=== PATIENT | male | born 1975 | race Caucasian/White ===

== ENCOUNTER 2016-12-07 17:42 | Observation (INO) | payer OTHER ==
--- NOTE | ~2016-12-07 | HP ---
Unit #: [id number] #: [id number] Patient: JENAE VALERIO [id number] [address] [place], [place] [address] [id number] I MR#: [id number] NAME: JENAE VALERIO ROOM: [facility] Age: 41 Sex: M Admission Date: 12/07/2016 : 1975 Attending Physician: Emma Mike M.D. Primary Care Physician: No Primary Care Physician HISTORY AND PHYSICAL CHIEF COMPLAINT Nausea, vomiting, and hyperthyroidism. HISTORY This pleasant, 41-year-old male with hyperthyroidism diagnosed 3-4 months ago and hypertension was transferred from [facility] emergency department for complaints of nausea and vomiting. Patient was diagnosed with hyperthyroidism about 3-4 months ago and was placed on PTU 50 mg t.i.d. long with Lopressor 25 mg b.i.d. States that he notes intermittent nausea and vomiting, which he believes is related to his PTU and, therefore, decreased his PTU only to 50 mg once a day. He had stopped taking his medicine for about a month until a week ago. States that his symptoms of hyperthyroidism including palpitations and shakiness had increased and, therefore, resumed his PTU at 50 mg a week ago. He went to [facility] emergency department yesterday and was noted to have a blood pressure of 180/98 and heart rate about 120. He was bolused with a liter of saline, given Zofran, and 1 mg of IV propranolol. Was sent to this hospital as there were some concerns about possible thyroid storm. Currently, the patient is comfortable. He has an enlarged thyroid/goiter on exam, which is symmetric. He has a minor tremor. He is afebrile and his vital signs are improved. His heart rate now is 116 with a blood pressure of 168/99. PAST MEDICAL HISTORY 1. Hyperthyroidism diagnosed 3-4 months ago. 2. Hypertension. 3. Left wrist surgery. ALLERGIES None. HOME MEDICATIONS 1. PTU 50 mg, which is supposed to be 3 times a times a day, but patient is only taking it once a day. 2. Lopressor 25 mg b.i.d. 3. Zestoretic 20/12.5 mg daily. FAMILY HISTORY Hyperthyroidism. SOCIAL HISTORY The patient lives with his pets. He does smoke THC frequently. Does not drink alcohol and is a lifelong nonsmoker. Unit #: [id number] #: [id number] Patient: JENAE VALERIO REVIEW OF SYSTEMS Notable for tremulousness, palpitations, hyperthyroidism, hypertension, and left wrist surgery. All other systems were reviewed and otherwise negative. PHYSICAL EXAMINATION GENERAL APPEARANCE: Pleasant, 41-year-old male who currently is in no acute distress. VITAL SIGNS: Temperature 98.2, current heart rate is 116, respirations 20, current blood pressure is 168/99, and O2 saturation is 96% on room air. HEENT: Eyes: PERRLA. Extraocular muscles are intact. Pharynx is benign. Patient has an enlarged, mildly tender thyroid, which is symmetric. CHEST: Clear. CARDIAC: Slightly tachy S1 and S2 without definite murmur. ABDOMEN: Bowels sounds are present. No hepatosplenomegaly, tenderness, or masses. EXTREMITIES: Without C, C, or E. Pedal pulses are present. NEUROLOGIC: Patient is awake, alert, and oriented. His cranial nerves are intact. He has equal strength throughout and has a fine tremor on exam. DIAGNOSTIC STUDIES LABORATORY: Admission labs: Hematocrit is 41.3 and white blood count and platelet count are normal. SMA-12: Alk phos 139. Normal amylase and lipase. TSH 0.04. Free T4 5.3. Free T3 is 25. Urinalysis is negative. CARDIOVASCULAR: EKG: Sinus tachycardia, rate 118, otherwise normal appearing. ASSESSMENT 1. Nausea and vomiting, which may be related to PTU versus related to marijuana. 2. Hyperthyroidism diagnosed 3-4 months ago, likely Graves disease. Patient is only taking his PTU once a day. 3. Hypertension. PLANS 1. IV fluids, Zofran. 2. Patient to stop smoking marijuana. 3. Increase PTU back to t.i.d. and increase Lopressor to 50 mg b.i.d. 4. Consult endocrinology. Dictated by Faye Lopez M.D. EMPERATRIZ/arely TD: 12/08/2016 06:04 JOB #: [id number] CC: [facility] Unit #: [id number] #: [id number] Patient: JENAE VALERIO HISTORY AND PHYSICAL Page 1 of 1 X Faye Lopez MD HISTORY AND PHYSICAL
--- NOTE | ~2016-12-07 | EKG ---
PATIENT: JENAE VALERIO UNIT #: [id number] Ventricular Rate: 118 BPM Atrial Rate: 118 BPM P-R Interval: 120 ms QRS Duration: 76 ms Q-T Interval: 316 ms QTC Calculation(Bezet): 442 ms P [place]: 73 degrees Calculated R [place]: 32 degrees Calculated T [place]: 48 degrees Diagnosis Line: Sinus tachycardia Diagnosis Line: Otherwise normal ECG Diagnosis Line: When compared with ECG of 30-SEP-2015 19:20, Diagnosis Line: No significant change was found Diagnosis Line: Confirmed by ADRIANO HERRERA MD ([id number]) on 12/08/2016 Diagnosis Line: 2:48:40 PM INTERPRETING MD: SHARON SCHULTZ
--- NOTE | ~2016-12-07 | CO ---
Unit #: [id number] #: [id number] Patient: JENAE VALERIO [id number] [address] [place], [place] [address] [id number] I MR#: [id number] NAME: JENAE VALERIO ROOM: 317 Age: 41 Sex: M Admission Date: 12/07/2016 : 1975 Attending Physician: Kathy Cheng M.D. Primary Care Physician: No Primary Care Physician Consultation Date: 12/08/2016 CONSULTATION REPORT REASON FOR CONSULT Thyrotoxicosis. HISTORY OF PRESENT ILLNESS This is a pleasant 41-year-old male who has history of hyperthyroidism, which was diagnosed 3-4 months ago. Follows with the primary care physician at [facility]. He was supposed to be making an appointment at [facility] for further management and evaluation. However, the patient was started on PTU 50 mg 3 times a day and Lopressor 25 b.i.d., which he was taking PTU only once a day, and at some point he stopped even taking all his medications. He presented to the emergency room with nausea, vomiting, tremors, palpitations and weight loss. He was hypertensive in the ER with blood pressure 180/98, and heart rate was 120s. Was treated with the beta-blockers, IV (1) and Zofran for nausea and vomiting. I have been asked to see the patient for further evaluation. MEDICAL HISTORY See HPI. ALLERGIES None. SOCIAL HISTORY Continues to smoke marijuana. HOME MEDICATIONS List is reviewed. PTU 50 mg t.i.d., Lopressor 25 b.i.d., Zestoretic 20/12.5 mg daily. REVIEW OF SYSTEMS Ten-point review of systems was completed, remarkable for the palpitations, tremors, nausea, vomiting, weight loss, sweating and enlarged thyroid gland. PHYSICAL EXAMINATION GENERAL: He looks anxious. VITAL SIGNS: Temperature 97.8, pulse 93, respirations 18, blood pressure 133/85. HEENT: EOMI. Pupils equally react to light. NECK: He has diffuse thyromegaly with some bruit noted. No lymphadenopathy. CHEST: Good air entry. CVS: Regular rhythm. S1 and S2. (2) . Unit #: [id number] #: [id number] Patient: JENAE VALERIO ABDOMEN: Soft. Nontender. Bowel sounds positive. EXTREMITIES: He has upper extremity tremors. NEUROLOGIC: Nonfocal. DIAGNOSTIC STUDIES LABORATORY: On his labs TSH is 0.04, free T4 is 5.29, free T3 is 25.4. ASSESSMENT Severe thyrotoxicosis. Patient is very symptomatic. PLAN Will continue beta-blockers, increase the propylthiouracil to 100 mg 3 times daily. Continue Zestoretic. Advised to follow with [facility] endocrine clinic for further evaluation with thyroid uptake and scan and possible radioablation treatment. Dictated by... Dorothy Baker/renee TD: 12/09/2016 10:50 JOB #: [id number] CONSULTATION REPORT Page 1 of 1 X Ilene Ballard MD X CONSULTATION REPORT
--- NOTE | ~2016-12-07 | DS ---
Unit #: [id number] #: [id number] Patient: JENAE VALERIO [id number] [address] [place], [place] [address] [id number] I MR#: [id number] NAME: JENAE VALERIO ROOM: 317 Age: 41 Sex: M Admission Date: 12/07/2016 : 1975 Discharge Date: 12/09/2016 Attending Physician: Kathy Cheng M.D. Primary Care Physician: No Primary Care Physician DISCHARGE SUMMARY REASON FOR ADMISSION Nausea, vomiting, hyperthyroidism. HISTORY OF PRESENT ILLNESS/HOSPITAL COURSE The patient is a very pleasant 41-year-old male with an underlying history of hyperthyroidism, recently diagnosed approximately three months ago and hypertension. He presented to the emergency department at outside hospital with complaints of nausea and vomiting. He was recently diagnosed with hyperthyroidism approximately three months ago and was actually waiting for an appointment at [facility] Endocrinology services for further evaluation. He was placed on PTU 50 mg t.i.d. with Lopressor 25 mg p.o. b.i.d. He was admitted for the same. While he was here he was appropriately treated with symptom management with regard to nausea and vomiting, which since settled. We also placed consultation to Dr. Ballard of endocrinology services. 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 After discussion and review with Dr. Ballard as well as Dr. Juarez of [facility], the decision has been made for PTU therapy at 100 mg p.o. q.8 h. and medical management will be tried first with appropriate outpatient followup. If medical management is unable to provide relief in regard to hyperthyroidism/goiter, surgical intervention may be considered at a later point in time, perhaps in four to six weeks. FINAL DISCHARGE DIAGNOSES 1. Intractable nausea and vomiting, now resolved. 2. Hyperthyroidism. 3. Goiter. 4. History of hypertension. FINAL DISCHARGE MEDICATIONS 1. Propylthiouracil 100 mg p.o. q.8 h. 2. Tylenol 650 mg p.o. q.6 h. p.r.n. 3. Lopressor 50 mg p.o. b.i.d. 4. Zestoretic 20/12.5 mg 1 tablet p.o. daily. DISCHARGE CONDITION Stable. DISPOSITION Home. Unit #: [id number] #: [id number] Patient: JENAE VALERIO FOLLOWUP 1. Follow up with primary care physician in 7-10 day. 2. Follow up with Dr. Ballard of endocrinology services in two to three weeks. Dictated by... Kathy hCeng M.D. ISN/gz TD: 12/11/2016 09:09 JOB #: [id number] DISCHARGE SUMMARY Page 1 of 1 X Kathy Cheng MD X DISCHARGE SUMMARY
[2016-12-07 17:40] LABS: BASOPHIL% 0.4 % (0-2.5); EOSINOPHIL% 0.1 % (0.0-7.0); HEMATOCRIT 41.3 % (38.0-50.0); HEMOGLOBIN 13.9 gm/dL (13.0-16.0); LYMPHOCYTE# 1.2 X10e3 (1.0-3.5); LYMPHOCYTE% 17.1 % (17.0-45.0); MEAN CELL VOLUME 82.9 FL (83-96); MEAN CORPUSCULAR HEMOGLOBIN 27.9 PG (28-34); MEAN CORPUSCULAR HGB CONC 33.7 g/dL (30-36); MEAN PLATELET VOLUME 8.4 FL (6.5-11.5); MONOCYTE# 0.7 X10e3 (0-1.0); MONOCYTE% 9.9 % (3.0-12.0); NEUTROPHIL# 4.9 X10e3 (1.5-7.1); NEUTROPHIL% 72.5 % (40-75); PLATELET COUNT 284 X10e3 (140-420); RED BLOOD COUNT 4.98 X10e (3.90-5.60); RED CELL DISTRIBUTION WIDTH 13.4 % (11.0-15.5); WHITE BLOOD COUNT 6.8 X10e3 (4.0-10.5)
[~2016-12-07 17:42] MED LIST: METOPROLOL TAR25 MG PO; NO MEDICATIONS; PROPYLTHIOURACIL1 GM PO
[2016-12-07 17:43] LABS: DIFF IND NO
[2016-12-07 17:57] LABS: ALBUMIN SERUM 4.2 g/dL (3.5-5.0); BILIRUBIN,TOTAL 0.7 mg/dL (0.2-2.0); CALCIUM SERUM 9.8 mg/dL (8.4-10.2); CREATININE SERUM 0.5 mg/dL (0.6-1.4); GLOM FILT RATE Estimated 133.7 mL/min (>60); POTASSIUM 4.1 mmol/L (3.5-5.1); PROTEIN TOTAL SERUM 7.8 g/dL (6.0-8.3)
[2016-12-07 18:13] LABS: THYROID STIMULATING HORMONE 0.04 uIU/ml (0.34-5.60)
[2016-12-07 18:13] LABS: POC - CKMB <1.0 ng/mL (0.0-7.9); POC - TROPONIN <0.05 ng/mL (<=0.05)
[2016-12-07 18:42] LABS: URINE SOURCE CLEAN CATCH
[2016-12-07 18:45] LABS: URINE APPEARANCE CLEAR; URINE BILIRUBIN NEG (NEG); URINE BLOOD NEG (NEG); URINE COLOR YELLOW; URINE GLUCOSE NEG (NORM); URINE KETONE NEG (NEG); URINE LEUKOCYTE ESTERASE NEG (NEG); URINE NITRATE NEG (NEG); URINE PH 5.5 (5-8); URINE PROTEIN NEG (NEG); URINE SPECIFIC GRAVITY >=1.030 (1.003-1.035); URINE UROBILINOGEN 0.2 MG/DL (NORM)
[2016-12-07 18:46] LABS: MICRO INDICATED? NO
[2016-12-07 19:28] LABS: FREE T3 25.4 pg/mL (2.5-3.9)
[2016-12-07 19:30] LABS: FREE THYROXIN (T4) 5.29 ng/dL (0.58-1.64)
[2016-12-07] MEDS ORDERED: PROPYLTHIOURACIL1 GM PO (23:17)
[2016-12-07] MEDS ORDERED: ZESTORETIC 20-1 EAC1 PO (23:19)
[2016-12-08 06:46] LABS: BASOPHIL% 0.7 % (0-2.5); EOSINOPHIL# 0.1 X10e3 (0-0.7); EOSINOPHIL% 2.3 % (0.0-7.0); HEMATOCRIT 38.5 % (38.0-50.0); HEMOGLOBIN 12.5 gm/dL (13.0-16.0); LYMPHOCYTE# 2.5 X10e3 (1.0-3.5); LYMPHOCYTE% 40.9 % (17.0-45.0); MEAN CELL VOLUME 84.2 FL (83-96); MEAN CORPUSCULAR HEMOGLOBIN 27.4 PG (28-34); MEAN CORPUSCULAR HGB CONC 32.5 g/dL (30-36); MEAN PLATELET VOLUME 8.9 FL (6.5-11.5); NEUTROPHIL# 2.4 X10e3 (1.5-7.1); NEUTROPHIL% 40.1 % (40-75); PLATELET COUNT 264 X10e3 (140-420); RED BLOOD COUNT 4.57 X10e (3.90-5.60); RED CELL DISTRIBUTION WIDTH 13.3 % (11.0-15.5)
[2016-12-08 06:49] LABS: DIFF IND NO
[2016-12-08 07:43] LABS: CALCIUM SERUM 9.6 mg/dL (8.4-10.2); CREATININE SERUM 0.6 mg/dL (0.6-1.4); GLOM FILT RATE Estimated 124.1 mL/min (>60); POTASSIUM 4.5 mmol/L (3.5-5.1)
[2016-12-09 05:10] LABS: HEMATOCRIT 38.9 % (38.0-50.0); HEMOGLOBIN 12.7 gm/dL (13.0-16.0); MEAN CELL VOLUME 83.4 FL (83-96); MEAN CORPUSCULAR HEMOGLOBIN 27.3 PG (28-34); MEAN CORPUSCULAR HGB CONC 32.7 g/dL (30-36); MEAN PLATELET VOLUME 8.8 FL (6.5-11.5); RED BLOOD COUNT 4.67 X10e (3.90-5.60); RED CELL DISTRIBUTION WIDTH 13.1 % (11.0-15.5); WHITE BLOOD COUNT 6.1 X10e3 (4.0-10.5)
[2016-12-09 06:23] LABS: ALBUMIN SERUM 3.5 g/dL (3.5-5.0); BILIRUBIN,TOTAL 0.7 mg/dL (0.2-2.0); BUN/CREATININE RATIO 27.5; CALCIUM SERUM 9.8 mg/dL (8.4-10.2); CREATININE SERUM 0.4 mg/dL (0.6-1.4); GLOM FILT RATE Estimated 146.6 mL/min (>60); MAGNESIUM 1.6 mg/dL (1.6-3.0); POTASSIUM 4.4 mmol/L (3.5-5.1); PROTEIN TOTAL SERUM 6.3 g/dL (6.0-8.3)
[2016-12-09] MEDS ORDERED: ACETAMINOPHEN PO (11:17)
[2016-12-09] MEDS ORDERED: PROPYLTHIOURACIL PO (11:19)
== END 2016-12-09 12:55 | disposition home or self-care (01) | DRG 392 ==
LOC: SED 17:42 → CEDOF 19:30 → C3A PCU 21:49
PROVIDERS: Family Medicine; Nurse Practitioner Family; Physician Assistant Medical
DX: R11.2 Nausea with vomiting, unspecified (principal); E05.00 Thyrotoxicosis with diffuse goiter without thyrotoxic crisis or storm; I10 Essential (primary) hypertension; Z83.49 Family history of other endocrine, nutritional and metabolic diseases; F12.90 Cannabis use, unspecified, uncomplicated
CPT/HCPCS: 36415; 80048; 80053; 81003; 82150; 82553; 83690; 83735; 84439; 84443; 84481; 84484; 85025; 85027; 93005; 96360; 96361; 99285; G0378; J1800; J2405